=== PATIENT | male | born 1975 | race Caucasian/White ===

== ENCOUNTER 2019-11-10 11:36 | Emergency (ER) | payer SELFPAY ==
[2019-11-10 12:16] VITALS: BP 136/85; PULSE 73; RESP 16; TEMP 36.7; O2SAT 98; BMI 25.1
--- NOTE | 2019-11-10 12:55 | ED_ITS ---
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 He has had worsening low back pain since then. States pain is sharp in nature and rates it a 6 out of 10. Patient denies any bowel or bladder incontinence. Denies any radiation of the pain. MD elicited complaint: back pain and back injury Onset (ago): day(s) Severity: moderate Quality: sharp Location: lumbar spine Radiation: none Exacerbating factors: movement Relieving factors: immobilization Context: while lifting Associated symptoms: Deny abdominal pain, chills, dysuria, fever(s), nausea or vomiting Review of Systems Const: Denies: fever(s), chills, body aches or change in appetite Eyes: Denies: blurry vision or eye discomfort ENMT: Denies: throat pain or dental pain Card: Denies: chest pain Resp: Denies: dyspnea GI: Denies: abdominal pain, nausea, vomiting or diarrhea : Denies: dysuria Musc: Reports: back pain Skin/Breast: Denies: rash Neuro: Denies: headache(s) Psych: Denies: depression Tony/Lymph: Denies: easy bruising All/Imm: Denies: urticaria Physical Exam Const: COMMON NORMALS: no acute distress, patient oriented x3 and healthy appearing HENMT: COMMON NORMALS: normocephalic and atraumatic HEAD & SCALP: normocephalic and atraumatic Eye: COMMON NORMALS: Equal, round and reactive pupils present and EOMs intact bilaterally PUPIL: Yes Equal, round and reactive pupils present Neck/C-Spine: COMMON NORMALS: full ROM and supple Chest: COMMONS NORMALS: normal inspection of the chest and normal palpation of entire chest wall Resp: COMMON NORMALS: normal respiratory effort, No retractions, No use of a ccessory muscles and clear to auscultation bilaterally AUSCULTATION: clear to auscultation bilaterally Cardio: COMMON NORMALS: regular rate, regular rhythm and No murmurs present (Cardio) RATE: regular rate RHYTHM: regular rhythm GI: COMMON NORMALS: Normal to inspection, nondistended, normoactive bowel sounds present, Soft to palpation, non-tender and no masses PALPATION: Yes Soft to palpation Back/Pelvis: OTHER: No midline tenderness. Paraspinal lumbar tenderness noted. No saddle anesthesia Extremity: COMMON NORMALS: normal to inspection and full ROM Neuro: COMMON NORMALS: patient oriented x3, moves all extremities and no focal motor deficits Psych: COMMON NORMALS: mental status grossly normal, Normal thought process present and cooperative THOUGHT PROCESS: Normal thought process present Skin: COMMON NORMALS: no rashes or lesions noted and no wounds GENERAL SKIN EXAM: no rashes or lesions noted Course Vital Signs: Vital signs: Vital Signs Temperature 98.1 F 11/10/19 12:16 Pulse Rate 73 11/10/19 12:16 Respiratory Rate 16 11/10/19 12:16 Blood Pressure 136/85 11/10/19 12:16 Pulse Oximetry 98 11/10/19 12:16 MDM - Back Pain/Injury MDM Narrative: Medical decision making narrative: Patient presents here with low back strain from lifting an AC unit. Patient is well-appearing here and has no signs of major injury. Will prescribe him muscle relaxant and pain meds. He is to follow-up with his primary care doctor in 3 to 5 days return if worsening. Discharge Plan Discharge Patient Disposition: Home, Self-Care Clinical Impression: Strain of lumbar region Qualifiers: Encounter type: initial encounter Qualified Code(s): S39.012A - Strain of muscle, fascia and tendon of lower back, initial encounter Condition: Stable Prescriptions: New Robaxin-750 750 mg tablet 750 mg PO Q6H Qty: 30 RF: 0 Naprosyn 500 mg tablet 500 mg PO BID PRN (Reason: pain) Qty: 20 RF: 0 Discharge Orders: Discharge Order (Routine); Ordered 11/10/19 Ordered By: Becca Rizzo Discharge Diet: Advance as tolerated Discharge Activity: Resume usual activity Patient Instructions: Low Back Strain (ED) Stand Alone Forms: Work/School Release Coding Level of Care Code ED [employer] for [employer]
[2019-11-10] MEDS: ketorolac 60 mg/2 mL INJ IM (13:02)
[2019-11-10] MEDS: dexamethasone 10 mg/mL INJ IM (13:03)
[2019-11-10 13:06] VITALS: BP 135/86; PULSE 69; RESP 16; O2SAT 100
== END 2019-11-10 13:08 | disposition home or self-care (01) ==
PROVIDERS: Emergency Provider Emergency Medicine
DX: S39.012A Strain of muscle, fascia and tendon of lower back, initial encounter (principal); X50.0XXA Overexertion from strenuous movement or load, initial encounter
CPT/HCPCS: 12345; 96372; 99281; 99283; J1100; J1885